=== PATIENT | male | born 1970 | race Caucasian/White ===

== ENCOUNTER 2017-01-25 13:40 | Emergency (ER) | payer BC ==
[2017-01-25 14:06] VITALS: RESP 16; TEMP 97.9; O2SAT 96
[2017-01-25] MEDS ORDERED: ACETAMINOPHEN 500 MG TAB PO ONE (14:35)
--- NOTE | 2017-01-25 15:20 | UCPHY ---
H & P Time Seen by Provider: 01/25/17 15:11 Patient Type: New HPI/ROS: This patient has right ear pain that has been moderate to severe at peak intensity with partial relief from alleve. He had Tylenol shortly prior to arrival with some relief. No other exacerbating or alleviating factors. currently has moderate right ear pain after antecedent nasal congestion for about a week. ROS: No high fevers or chills. No significant fatigue. HEENT: No sinus pain. No sore throat. The drainage from the ear. He does have diminished hearing on the affected side. Pulmonary: No cough GI: No vomiting integumentary: No skin rash. 7 point ROS is otherwise negative. Past Medical/Surgical History: Otherwise healthy Smoking Status: Never smoked Physical Exam: Physical Exam Vital signs are normal. General: No acute distress HEENT: Nose: Clear discharge bilaterally. No sinus tenderness to percussion. Ears: Right ear: Patient has normal external canal but a bulging erythematous tympanic membrane with purulent effusion. No perforations evident. Left external canal and TM are normal. Oropharynx: No erythema or exudates. No dysphonia. No drooling or stridor. Eyes: Pupils equal and react to light. Extraocular motions are intact. Neck: Supple. No lymphadenopathy Lungs: Clear to auscultation bilaterally with no rales, rhonchi or wheeze. No respiratory distress. Cardiac: Regular rate and rhythm with no murmur gallop or rub Skin: No rash or pallor. Neuro: Alert with no focal deficits noted. Constitutional: Initial Vital Signs Temperature (C) 36.6 C 01/25/17 14:03 Heart Rate 86 01/25/17 14:03 Respiratory Rate 16 01/25/17 14:03 Blood Pressure 132/86 H 01/25/17 14:03 O2 Sat (%) 96 01/25/17 14:03 O2 Delivery Mode Room Air Allergies/Adverse Reactions: No Known Allergies Allergy (Unverified 01/25/17 14:05) Home Medications: Medication Instructions Recorded Azithromycin [Zithromax] 250 mg PO DAILY #6 tab 01/25/17 Fluticasone Nasal [Flonase Nasal 2 sprays NASAL DAILY #1 mdi 01/25/17 [facility] (RX)] Medical Decision Making ED Course/Re-evaluation: I counseled the patient regarding otitis media. He does not have evidence clinically of [employer] infection or other complicating factors. - Data Points Medications Given: Discontinued Medications Acetaminophen (Tylenol) 1,000 mg PO EDNOW ONE Stop: 01/25/17 14:36 Last Admin: 01/25/17 14:40 Dose: 1,000 mg Departure - Departure Disposition: Home, Routine, Self-Care Clinical Impression: Otitis media Qualifiers: Otitis media type: suppurative Laterality: right Chronicity: acute Recurrence: not specified as recurrent Spontaneous tympanic membrane rupture: without spontaneous rupture Qualified Code(s): H66.001 - Acute suppurative otitis media without spontaneous rupture of ear drum, right ear Condition: Good Instructions: Otitis Media (ED) Additional Instructions: Diagnosis: Right otitis media Plan: Ibuprofen and Tylenol for pain control Flonase steroid nasal spray Zithromax antibiotic Return to see a physician if he have any worsening despite treatment plan Referrals: [facility] [Primary Care Provider] - As per Instructions Stand Alone Forms: Work Excuse Prescriptions: Azithromycin [Zithromax] 250 mg PO DAILY #6 tab Fluticasone Nasal [Flonase Nasal [facility] (RX)] 2 sprays NASAL DAILY #1 mdi - PQRS PQRS Measurement: NA
[2017-01-25 15:29] VITALS: BP 133/79; PULSE 85
== END 2017-01-25 15:26 | disposition home or self-care (01) ==
LOC: CED 13:40
DX: H66.001 Acute suppurative otitis media without spontaneous rupture of ear drum, right ear (principal)
CPT/HCPCS: 99203-PO; G0463-PO